=== PATIENT | female | born 1975 | race Caucasian/White ===

== ENCOUNTER 2024-03-20 14:46 | Emergency (ER) | payer OTHER, SELFPAY ==
[2024-03-20] VITALS (11 sets, daily range): BP systolic 119–157; BP diastolic 41–90; PULSE 52–65; RESP 20; TEMP 36.9; O2SAT 93–100; BMI 30.5
--- NOTE | 2024-03-20 14:54 | ED.GENADULT ---
HPI - General Adult General Date Seen: 03/20/24 Chief complaint: Chest Pain Stated complaint: Chest/L shoulder pain, dizziness Time Seen by Provider: 03/20/24 14:52 History of Present Illness HPI narrative: 48 yo F with history of low back pain, migraine headache, uterine prolapse, presenting to the ER with chest pain. She has been healthy and well lately. 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 She had a salad for lunch today. This afternoon she was at work doing her usual activities which do include standing and some using of her upper extremities but no heavy exertion or lifting. She began to feel a sudden wave of burning-type stabbing pain in her central chest. This was followed by some numbness down her left arm and then discomfort in the left arm and no and discomfort up into her jaw. She took some ibuprofen and is now feeling better but the discomfort in her chest is still there. No other symptoms. No nausea. No dizziness. No syncope. No palpitations. No abdominal pain. She does have some chronic back pain for which she takes ibuprofen per sporadically but no new back pain or intrascapular thoracic back pain. No ripping or tearing pain. She has no recent travel or immobilization. No swelling in her lower extremities. No history of DVT or PE. She has no history of hypertension, dyslipidemia, diabetes, or other risk factors for coronary disease. Related Data Previous Rx's ?Medication ?Instructions ?Recorded albuterol sulfate 90 mcg/actuation 2 puff inhalation Q4-6H PRN 07/02/23 aerosol inhaler shortness of breath or wheezing #1 packet Allergies Allergy/AdvReac Type Severity Reaction Status Date / Time No Known Allergies Allergy Unknown unknown Uncoded 07/02/23 08:57 PFSH PFSH Family History Other Diabetes Social History Smoking Status: Never smoker How often do you have a drink containing alcohol: never AUDIT-C Alcohol total score: 0 Non-prescribed substance use: denies use Exam Narrative: Exam Narrative: Constitutional: Appears well-developed and well-nourished. Alert. Conversant. Non toxic. Polite. HENT: Head: Atraumatic. Nose: Nose normal. Mouth/Throat: Oral mucosa is clear and moist. no trismus. Pharynx normal. Tonsils symmetric. No tonsillar enlargement, erythema, or exudate. Eyes: Conjunctivae normal. EOM normal. Pupils equal, round, and reactive to light. No scleral icterus. Neck: Normal range of motion. Neck supple. No tracheal deviation present. No JVD Cardiovascular: Normal rate, regular rhythm. No gallop. No friction rub. No murmur heard. Symmetric radial and PT artery pulses Pulmonary/Chest: Effort normal. No stridor. No respiratory distress. No wheezes. No rales. No rhonchi . No tenderness. Abdominal: Soft. Bowel sounds normal. No distension. No mass. No tenderness. No rebound. No guarding. No right upper quadrant tenderness. Musculoskeletal: RUE: Normal range of motion. No tenderness. No deformity LUE: Normal range of motion. No tenderness. No deformity RLE: Normal range of motion. No edema. No tenderness. No deformity LLE: Normal range of motion. No edema. No tenderness. No deformity Neurological: Alert and oriented to person, place, and time. Normal strength. CN II-VII intact. No sensory deficit. GCS eye subscore is 4. GCS verbal subscore is 5. GCS motor subscore is 6. Normal coordination Skin: Skin is warm and dry. No rash noted. No pallor. Normal capillary refill. Psychiatric: Normal mood. Normal affect. Const: Vital Signs, click to edit/add: Vital Signs - 24 hr 03/20/24 14:49 03/20/24 15:30 03/20/24 15:32 Temperature 98.4 F Pulse Rate 61 Pulse Rate [Pulse Oximeter] 62 Respiratory Rate 20 Blood Pressure 135/90 H Blood Pressure [Ri ght Upper Arm] 157/90 H Pulse Oximetry 99 93 Oxygen Delivery Me thod Room Air Course Vital Signs Vital signs: Initial Vital Signs Respiratory Effort Normal 03/20/24 14:48 Respiratory Depth Normal 03/20/24 14:48 Respiratory Pattern Normal 03/20/24 14:48 Vital Signs Temperature 98.4 F 03/20/24 14:49 Pulse Rate 62 03/20/24 14:49 Respiratory Rate 20 03/20/24 14:49 Blood Pressure 157/90 H 03/20/24 14:49 Pulse Oximetry 99 03/20/24 14:49 Oxygen Delivery Method Room Air 03/20/24 14:49 Temperature 98.4 F 03/20/24 14:49 Pulse Rate 61 03/20/24 15:30 Respiratory Rate 20 03/20/24 14:49 Blood Pressure 135/90 H 03/20/24 15:32 Pulse Oximetry 93 03/20/24 15:30 Oxygen Delivery Method Room Air 03/20/24 14:49 Medications Administered Medications: Discontinued Medications Generic Name Dose Route Start Last Admin Trade Name Neil PRN Reason Stop Dose Admin Aspirin 162 mg 03/20/24 15:18 03/20/24 15:48 Aspirin 81 Mg Tab.Chew PO 03/20/24 15:19 162 mg ONCE ONE Administration Medical Decision Making MDM Narrative Medical decision making narrative: This patient presents to the ER today for evaluation of chest pain with radiation down her left arm and up to her left jaw. As a single episode could represent possibleACS but no other recent episodes of chest pain to suggest angina. Differential was broad. No evidence of palpitations, syncope or other cardiac dysrhythmia. We considered possible ACS, however workup with EKG and troponin is negative. HEART score is 3 (low risk). Given time since onset of symptoms, I have ordered a repeat troponin for 5:30 p.m.. Discussed with my oncoming partner, Dr. Tracy, will follow-up on the result. Chest x-ray shows no evidence for pneumonia, pneumothorax, pulmonary edema, pleural effusion, rib fracture, cardiomegaly by my read. Mediastinum is normal on the x-ray. The patient has no ripping or tearing pain through to the back and has symmetric pulses on exam, no other acute neuro findings so I doubt aortic dissection. Risk of radiation and contrast exposure would outweigh the benefit of CT angiogram. We considered PE for this patient. I have ordered a D-dimer. Results currently pending. No wheezing or bronchospasm to suggest COPD/asthma. No signs of chest wall cellulitis, shingles, injury. If her symptoms and vital signs remain improved and stable and remaining workup is reassuring- D-dimer is normal and her repeat troponin is normal - I think she would be safe to discharge with outpatient primary care follow-up. Discussed with my partner Dr. Tracy. Lab Data Labs: Lab Results 03/20/24 Range/Units 15:26 WBC 8.10 (4.50-11.00) K/uL RBC 3.93 L (4.00-5.20) m/uL Hgb 12.2 (12.0-16.0) gm/dL Hct 37.3 (33.0-51.0) % MCV 95 (80-100) fL MCH 31 (26-34) pg MCHC 33 (32-36) gm/dL RDW Coeff of [place] 12.9 (11.5-15.5) % Plt Count 225 (140-440) K/uL Neut % (Auto) 70.0 (42.0-72.0) % Lymph % (Auto) 23.0 (20-44) % [place] % (Auto) 5.6 (0.0-11.0) % Eos % (Auto) 0.6 (0.0-7.0) % Baso % (Auto) 0.6 (0.0-3.0) % Neut # (Auto) 5.67 (1.7-7.0) K/uL Lymph # (Auto) 1.86 (0.90-2.90) K/uL [place] # (Auto) 0.50 (0.00-0.90) K/UL Eos # (Auto) 0.05 (0.00-0.50) K/uL Baso # (Auto) 0.05 (0.00-0.30) K/uL Abs Immat Gran (auto) 0.02 (0.00-0.30) K/uL Imm/Tot Granulo (auto) 0.2 % Potassium 3.6 (3.6-5.1) mmol/L Chloride 107 (96-114) mmol/L POC Troponin I 0.00 L (0.01-0.04) ng/ml ECG Data Attestation: I personally reviewed and interpreted this ECG as follows: Interpretation: Sinus bradycardia Rate: 58 CO: 154 QRS axis: Normal axis. No pathologic Q-waves. ST segment/T wave: No ST segment elevation or depression. Nonspecific T-wave flattening in lead 3 and AVF QTc: 392 Discharge Plan Discharge Prescriptions: No Action albuterol sulfate 90 mcg/actuation HFA aerosol inhaler 2 puff inhalation Q4-6H PRN (Reason: shortness of breath or wheezing) Qty: 1 0RF Follow Up/Referrals: Dalton Hyde MD [Staff Physician] -
--- NOTE | 2024-03-20 15:19 | CRLHL7_ITS ---
For Patients: As a result of the Century Cures Act, medical imaging exams and procedure reports are released immediately into your electronic medical record. You may view this report before your referring provider. If you have questions, please contact your health care provider. INDICATION: Chest pain. TECHNIQUE: Chest 2 views. COMPARISON: None. FINDINGS: Cardiovascular and mediastinum: Heart size is normal. Unremarkable mediastinum. Lungs and pleural spaces: Lungs are clear. No sign of infiltrate or mass. No sign of pleural effusion. No pneumothorax. Bones and soft tissues: No significant findings. IMPRESSION: No acute or significant findings. No findings to explain pain. Dictated by Luis Enrique Gonzalez MD @ 03/20/2024 4:03:25 PM (Electronically Signed)
[2024-03-20 15:42] LABS: Basophils Absolute Auto 0.05 K/uL (0.00-0.30); Basophils Percent Auto 0.6 % (0.0-3.0); Eosinophils Absolute Auto 0.05 K/uL (0.00-0.50); Eosinophils Percent Auto 0.6 % (0.0-7.0); Hematocrit 37.3 % (33.0-51.0); Hemoglobin* 12.2 gm/dL (12.0-16.0); Immature Granulocytes Abs Auto 0.02 K/uL (0.00-0.30); Immature Granulocytes Pct Auto 0.2 %; Lymphocytes Absolute Auto 1.86 K/uL (0.90-2.90); Mean Corpuscular HGB Conc 33 gm/dL (32-36); Mean Corpuscular Hemoglobin 31 pg (26-34); Mean Corpuscular Volume 95 fL (80-100); Monocytes Percent Auto 5.6 % (0.0-11.0); Neutrophils Absolute Auto 5.67 K/uL (1.7-7.0); Platelet Count* 225 K/uL (140-440); RDW Coefficient of Variation % 12.9 % (11.5-15.5); Red Blood Count 3.93 m/uL (4.00-5.20)
[2024-03-20] MEDS: ASPIRIN 81 MG TAB.CHEW 162 MG PO (15:48)
[2024-03-20 15:53] LABS: Chloride* 107 mmol/L (96-114); Potassium* 3.6 mmol/L (3.6-5.1)
[2024-03-20 15:55] LABS: Slide Review Reflex No
[2024-03-20 15:56] LABS: Carbon Dioxide* 23 mmol/L (20-32); Creatinine* 0.8 mg/dL (0.5-1.5); Estimated Glomerular Filt Rate 90 ml/min
[2024-03-20 15:57] LABS: Blood Urea Nitrogen* 15 mg/dL (7-30); Calcium* 9.1 mg/dL (8.4-10.6); Glucose* 92 mg/dL (60-115)
[2024-03-20 16:05] LABS: D Dimer Quantitative* 0.29 ug/ml (0.00-0.50)
[2024-03-20 17:13] LABS: Anion Gap 6 mEq/L (7-15); Sodium* 136 mmol/L (135-149)
== END 2024-03-20 18:09 | disposition home or self-care (01) ==
PROVIDERS: Emergency Provider Emergency Medicine; PCP Nurse Practitioner Women's Health
DX: R07.9 Chest pain, unspecified (principal)
CPT/HCPCS: 36415; 71046; 80048; 84484; 85025; 85379; 99283; 99284; A9270